=== PATIENT | female | born 1995 | race Two or more races ===

== ENCOUNTER 2025-06-07 10:41 | Outpatient (CLI) | payer OTHER | END 2025-06-07 11:31 | disposition home or self-care (01) | LOC: NST 10:41 | PROVIDERS: ATTEND Obstetrics & Gynecology Maternal & Fetal Medicine | DX: Z34.83 Encounter for supervision of other normal pregnancy, third trimester (principal) ==

== ENCOUNTER 2025-06-07 14:45 | Inpatient (IN) | payer OTHER ==
[~2025-06-07] VITALS: Ht 152.4 cm; Wt 3.6 kg
[2025-06-15 10:58] LABS: BASO % 0.3 % (0.1-1.2); EOS # 0.08 (0.04-0.54); EOS % 0.9 % (0.7-7.0); LYMPH # 2.14 (1.18-3.74); LYMPH % 24.6 % (19.3-53.1); MEAN PLATELET VOLUME 11.80 fl (9.4-12.4); MONO # 0.95 (0.24-0.82); MONO % 10.9 % (4.7-12.5); NEUT # 5.35 (1.56-6.13); NEUT % 61.7 % (34.0-71.1); RED CELL DISTRIBUTION WIDTH 15.5 % (11.6-14.4)
[2025-06-15 11:23] LABS: COVID-19 AG NEGATIVE (NEGATIVE)
[2025-06-15 11:59] LABS: ALT/SGPT 13.0 U/L (12-78); AST/SGOT 12.0 U/L (15-37); BILIRUBIN TOTAL 0.4 mg/dL (0.3-1.2); BUN CREA RATIO 8.0 (7.0-25.0); CREATININE SERUM 0.65 mg/dL (0.55-1.02); GFR 109.34; GLOBULINA 3.8 G/DL (2.4-3.5); GLUCOSE FASTING 71.0 mg/dL (65-100); OSMOLALITY SERUM 273.0 MOSM/KG (275-295)
[2025-06-15 12:16] LABS: INR < 0.93
[2025-06-19] MEDS ORDERED: FOLIC ACID20 MG PO (06:21)
[2025-06-19 08:45] VITALS: BP 122/83
[2025-06-19] MEDS ORDERED: RINGERS SOLUTION,LACTATED 1,000 ML IV SCH ×2 (09:15→14:30)
[2025-06-19] MEDS ORDERED: CITRIC ACID/SODIUM CITRATE 30 ML BLIST.PACK PO SCH (09:15)
[2025-06-19] MEDS ORDERED: CEFAZOLIN SODIUM 1,000 MG VIAL IV SCH (09:15)
[2025-06-19 11:02] VITALS: BP 122/83
[2025-06-19] MEDS ORDERED: ERYTHROMYCIN BASE OPHT 1GM EACH TUBE OP ONE (13:00)
[2025-06-19] MEDS ORDERED: OXYTOCIN 10 UNITS/ML VIAL IV ONE (13:00)
[2025-06-19] MEDS ORDERED: OXYTOCIN 1,000 ML IV ONE (14:30)
[2025-06-19] MEDS ORDERED: MORPHINE SULFATE 4 MG/ML CARTRIDGE IV PRN (14:30)
[2025-06-19] MEDS ORDERED: GABAPENTIN 300 MG CAPSULE PO SCH (17:00)
[2025-06-19] MEDS ORDERED: SIMETHICONE 125 MG CAPSULE PO SCH (17:00)
[2025-06-19] MEDS ORDERED: KETOROLAC TROMETHAMINE 30 MG VIAL IV SCH (18:00)
[2025-06-19] MEDS ORDERED: ACETAMINOPHEN 500 MG GEL..CAP PO SCH (18:00)
[2025-06-19] MEDS ORDERED: ONDANSETRON HCL 2 MG/ML VIAL IV SCH (18:00)
[2025-06-19] MEDS ORDERED: MORPHINE SULFATE 4 MG/ML VIAL IV ONE (18:05)
[2025-06-19 21:09] VITALS: BP 129/84
[2025-06-20] VITALS: BP 109/70
[2025-06-20 06:48] LABS: BASO % 0.4 % (0.1-1.2); EOS # 0.07 (0.04-0.54); EOS % 0.6 % (0.7-7.0); LYMPH # 2.01 (1.18-3.74); LYMPH % 17.7 % (19.3-53.1); MEAN PLATELET VOLUME 12.70 fl (9.4-12.4); MONO # 1.13 (0.24-0.82); MONO % 9.9 % (4.7-12.5); NEUT # 8.03 (1.56-6.13); NEUT % 70.6 % (34.0-71.1); RED CELL DISTRIBUTION WIDTH 15.9 % (11.6-14.4)
[2025-06-20] MEDS ORDERED: OxyCODONE HCL 5 MG TABLET (ROXICODONE) PO PRN (08:00)
[2025-06-20] MEDS ORDERED: KETOROLAC TROMETHAMINE 10 MG TABLET PO SCH (08:00)
[2025-06-20] MEDS ORDERED: DOCUSATE SODIUM 100MG CAP PO SCH (09:00)
[2025-06-20] MEDS ORDERED: IRON FUM,PS/FOLIC ACID/VITC/B3 1 CAP CAPSULE PO SCH (09:00)
[2025-06-20 09:19] VITALS: BP 108/71
[2025-06-20 17:53] VITALS: BP 113/78
[2025-06-21 00:52] VITALS: BP 104/70
[2025-06-21] MEDS ORDERED: OxyCODONE HCL 5 MG TABLET (ROXICODONE) PO PRN (06:00)
[2025-06-21 08:00] VITALS: BP 129/87
== END 2025-06-21 12:36 | disposition home or self-care (01) | DRG 788 ==
LOC: LDR 06-15 14:45 → OB/GYN 06-19 08:40 → O/R 06-19 08:40 → LDR 06-19 08:40 → O/R 06-19 12:54 → OB/GYN 06-19 15:30
PROVIDERS: Obstetrics & Gynecology; ADMIT Obstetrics & Gynecology Maternal & Fetal Medicine; ATTEND Obstetrics & Gynecology Maternal & Fetal Medicine
PROC: 4A1HXCZ Monitoring of Products of Conception, Cardiac Rate, External Approach (ICD-10-PCS; 2025-06-19)
PROC: 10D00Z1 Extraction of Products of Conception, Low, Open Approach (ICD-10-PCS; principal; 2025-06-19 14:00)
DX: O82 Encounter for cesarean delivery without indication (principal); O62.0 Primary inadequate contractions; Z3A.40 40 weeks gestation of pregnancy; Z37.0 Single live birth

== ENCOUNTER 2025-06-19 06:19 | Outpatient (CLI) | payer OTHER ==
[2025-06-19 05:08] VITALS: BP 110/77
[2025-06-19] MEDS ORDERED: FOLIC ACID20 MG PO (06:21)
== END 2025-06-19 08:40 | disposition still patient (30) ==
LOC: OBS/DEL 06:19
PROVIDERS: ATTEND Obstetrics & Gynecology
DX: O26.893 Other specified pregnancy related conditions, third trimester (principal)